=== PATIENT | male | born 1970 | race African-American/Black ===

== ENCOUNTER 2017-09-25 04:59 | Inpatient (IN) | payer OTHER ==
[~2017-09-25] VITALS: Ht 175.3 cm; Wt 84.1 kg
[2017-09-25 05:21] VITALS: BP 161/95; PULSE 60; RESP 18; TEMP 97.8; O2SAT 99
[2017-09-25] MEDS ORDERED: DILA100C PO (05:28)
--- NOTE | 2017-09-25 05:54 | PD ---
HPI Chief Complaint: Psychiatric Symptoms Time Seen by Provider: 05:24 Travel History International Travel<30 days: No Contact w/Intl Traveler<30days: No Traveled to known affect area: No History of Present Illness HPI 47-year-old black male presents emergency department as a transfer from [facility] emergency department for psychological evaluation under a [place] act. The patient had presented to the ER stating that he was feeling depressed regarding his homeless status and that this had been making him feel increasingly depressed. States he is hearing voices and he has a history of schizophrenia. Patient is homeless. Patient has a history of substance abuse. Patient denies any toxic ingestions. No plan on self-harm. PFSH Past Medical History Narrative Medical Schizophrenia, substance abuse, seizure disorder, epidural cervical hematoma, hypercholesterolemia Seizures: Yes Tetanus Vaccination: Unknown Past Surgical History Narrative Surgical Epidural cervical hematoma Social History Alcohol Use: Yes Tobacco Use: Yes Substance Use: Yes (sandro) Allergies-Medications (Allergen,Severity, Reaction): Coded Allergies: No Known Allergies (Unverified , 09/25/17) Reported Meds & Prescriptions Reported Meds & Active Scripts Active Reported Dilantin (Phenytoin Extended) 100 Mg Cap 100 Mg PO BID Review of Systems General / Constitutional: No: Fever Eyes: No: Visual changes HENT: No: Headaches Cardiovascular: No: Chest Pain or Discomfort Respiratory: No: Shortness of Breath Gastrointestinal: No: Abdominal Pain Genitourinary: No: Dysuria Musculoskeletal: No: Pain Skin: No Rash Neurologic: Positive: Seizures, No: Weakness Psychiatric: Positive: Depression, Suicidal Ideations, Disorder of Thought, Substance Abuse, No: Anxiety, Mood Disorder, Homicidal Ideation Endocrine: No: Polydipsia Hematologic/Lymphatic: No: Easy Bruising Physical Exam Narrative GENERAL: Well-nourished, well-developed patient. SKIN: Warm and dry. HEAD: Normocephalic and atraumatic. EYES: No scleral icterus. No injection or drainage. ENT: No nasal drainage noted. Mucous membranes pink. Airway patent. NECK: Supple, trachea midline. Moves head freely without obvious discomfort. CARDIOVASCULAR: Regular rate and rhythm without murmurs, gallops, or rubs. RESPIRATORY: Breath sounds equal bilaterally. No accessory muscle use. GASTROINTESTINAL: Abdomen soft, non-tender, nondistended. EXTREMITIES: No cyanosis or edema. BACK: Nontender without obvious deformity. No CVA tenderness. NEURO: Patient is alert and oriented. no sensorimotor deficits. Nonfocal. Normal speech. PSYCH: No delusions. No auditory or visual hallucinations. Data Data Last Documented VS Vital Signs Date Time Temp Pulse Resp B/P (MAP) Pulse Ox O2 Delivery O2 Flow Rate FiO2 09/25/17 05:21 97.8 60 18 161/95 (117) 99 MDM Medical Decision Making Medical Screen Exam Complete: Yes Emergency Medical Condition: Yes Medical Record Reviewed: Yes Differential Diagnosis MDM: High Differential diagnoses: Schizophrenia, schizoaffective disorder, bipolar, anxiety, depression, adjustment reaction, mood disorder NOS, ODD, depressive disorder NOS, dementia, dementia with agitation, psychosis NOS, substance induced mood disorder, DMDD, Asperger syndrome, infection,electrolyte abnormality, malingering. Narrative Course Mental health screening discussed with the patient. Psychiatric screen ordered. The patient has been medically cleared by [facility]. This is medical clearance for psychiatric admission, substance abuse, schizophrenia, homelessness Diagnosis Primary Impression: Medical clearance for psychiatric admission Additional Impressions: substance abuse Schizophrenia Homelessness Condition: Stable Roni Calderon Sep 25, 2017 05:54
[2017-09-25 08:56] VITALS: BP 137/84; PULSE 74; RESP 18; O2SAT 100
[2017-09-25] MEDS ORDERED: PHENYTOIN SODIUM 100 MG CAP PO ONE (10:30)
[2017-09-25] MEDS ORDERED: MAGNESIUM HYDROXIDE SUSP 30 ML CUP PO PRN (14:15)
[2017-09-25] MEDS ORDERED: FLUMAZENIL 0.5 MG/5 ML VIAL IV PUSH PRN (14:15)
[2017-09-25] MEDS ORDERED: LORazepam 2 MG TAB PO PRN (14:15)
[2017-09-25] MEDS ORDERED: LORazepam 1 MG TAB PO PRN ×2 (14:15)
[2017-09-25] MEDS ORDERED: LORazepam 2 MG/ML VIAL IV PUSH PRN ×4 (14:15)
[2017-09-25] MEDS ORDERED: LORazepam 2 MG/ML VIAL IM PRN ×2 (14:15)
[2017-09-25] MEDS ORDERED: ALUMINUM/MAGNESIUM/SIMETH 30 ML CUP PO PRN (14:15)
[2017-09-25] MEDS ORDERED: ACETAMINOPHEN 325 MG TAB PO PRN (14:15)
[2017-09-25] MEDS ORDERED: LORazepam 0.5 MG TAB PO PRN (14:15)
--- NOTE | 2017-09-25 14:22 | HHI.HP ---
Provisional Diagnosis Admission Date [place] I. Unspecified psychosis, self reported schizophrenia, cocaine, alcohol and cannabis use disorder [place] II. Deferred [place] III. Seizures Certification of Person's Competence To Provide Express and Informed Consent I have personally examined Trevor Gray , a person being served at [facility] on, Sep 25, 2017 14:11. Express and informed consent means consent voluntarily given in writing, by a competent person, after sufficient explanation and disclosure of the subject matter involved to enable the person to make a knowing and willful decision without any element of force, fraud, deceit, duress, or other form of constraint or coercion. This person is 18 years of age or older, is not now known to be incompetent to consent to treatment with a guardian advocate, and does not have a health care surrogate or proxy currently making medical treatment decisions. I have found this person to be one of the following: [x] Competent to provide express and informed consent, as defined above, for voluntary admission to this facility and is competent to provide express and informed consent for treatment. He/she has the consistent capacity to make well reasoned, willful, and knowing decisions concerning his or her medical or mental health treatment. The person fully and consistently understands the purpose of the admission for examination/placement and is fully capable of personally exercising all rights assured [place] Incompetent to provide express and informed consent to voluntary admission, and this is incompetent to provide express and informed consent to treatment. The person must be transferred to involuntary status and a petition for a guardian advocate filed with the Circuit Court. [] Refusing to provide express and informed consent to voluntary admission but is competent to provide express and informed consent for treatment. The person must be discharged or transferred to involuntary status. Form shall be completed within 24 hours of a person's arrival at the receiving facility and filed in the clinical record of each person: 1. Admitted on a voluntary basis 2. Permitted to provide express and informed consent to his/her own treatment 3. Allowed to transfer from involuntary to voluntary status 4. Prior to permitting a person to consent to his or her own treatment after having been previously found incompetent to consent to treatment. History of Present Illness Capacity: Has Capacity HPI The patient is a 47-year-old -[place]ov[place] man, homeless in the area of [facility], unemployed, in process of getting SSI, single, first time seem by the psychiatric department [place], with several reported psychiatric history of schizophrenia, 1 previous psychiatric hospitalization in to see me, he is not a medications, one previous suicidal attempt, alcohol, cocaine and cannabis use disorder, medical history of seizures, he is on Dilantin 100 mg, who presents emergency department as a transfer from [facility] emergency department for psychological evaluation under a [place] act. The patient had presented to the ER stating that he was feeling depressed regarding his homeless status and that this had been making him feel increasingly depressed. States he is hearing voices and he has a history of schizophrenia. Patient is homeless. Patient has a history of substance abuse. On psychiatric evaluation today patient is calm, cooperative, a little bit irritable. The patient states that for the last 2 weeks he has been feeling increasingly depressed, with increased sensation of hopelessness, helplessness, worthlessness, generalized pessimism, and increased thoughts of harming himself. He also reports that he has been hearing voices telling him to kill himself. Patient reports that he used cocaine, cannabis and alcohol occasionally, but he denies using this drugs in the last week. Patient reports that he was admitted in 2017 in a psychiatric hospital in [place] with similar presenting but after discharge he was not able to continue taking the medications due to lack of insurance and psychiatric connections. At this moment the patient does not present visible paranoia, delusions, tangentiality, ideas of reference, loosening of associations. The patient is fully oriented 3. No gross cognitive impairment present. The patient is able to verbalize that he is committed to be admitted and stabilized voluntarily. Review of Systems Constitutional: DENIES: Diaphoretic episodes, Fatigue, Fever, Weight gain, Weight loss, Chills, Dizziness, Change in appetite, Night Sweats Endocrine: DENIES: Heat/cold intolerance, Polydipsia, Polyuria, Polyphagia Eyes: DENIES: Blurred vision, Diplopia, Eye inflammation, Eye pain, Vision loss , Photosensitivity, Double Vision Ears, nose, mouth, throat: DENIES: Tinnitus, Hearing loss, Vertigo, Nasal discharge, Oral lesions, Throat pain, Hoarseness, Ear Pain, Running Nose, Epistaxis, Sinus Pain, Toothache, Odynophagia Respiratory: DENIES: Apneas, Cough, Snoring, Wheezing, Hemoptysis, Sputum production, Shortness of breath Cardiovascular: DENIES: Chest pain, Palpitations, Syncope, Dyspnea on Exertion , PND, Lower Extremity Edema, Orthopnea, Claudication Gastrointestinal: DENIES: Abdominal pain, Black stools, Bloody stools, Constipation, Diarrhea, Nausea, Vomiting, Difficulty Swallowing, Anorexia Genitourinary: DENIES: Sexual dysfunction, Urinary frequency, Urinary incontinence, Urgency, Hematuria, Dysuria, Nocturia, Penile Discharge, Testicular Pain, Testicular Swelling Musculoskeletal: DENIES: Joint pain, Muscle aches, Stiffness, Joint Swelling, Back pain, Neck pain Integumentary: DENIES: Abnormal pigmentation, Nail changes, Pruritus, Rash Hematologic/lymphatic: DENIES: Bruising, Lymphadenopathy Immunologic/allergic: DENIES: Eczema, Urticaria Neurologic: DENIES: Abnormal gait, Headache, Localized weakness, Paresthesias, Seizures, Speech Problems, Tremor, Poor Balance Psychiatric: COMPLAINS OF: Hallucinations, Suicidal Ideation, DENIES: Anxiety, Confusion, Mood changes, Depression, Agitation, Homicidal Ideation, Delusions Past Psych History Violence risk - self (6 mos) Increased Substance Abuse History Drugs/Alcohol past 12 months Cocaine, cannabis and alcohol occasionally Past Family Social History Coded Allergies: No Known Allergies (Unverified , 09/25/17) Reported Medications Phenytoin Extended (Dilantin) 100 Mg Cap, 100 MG PO BID for Control Seizures, # 90 CAP 0 Refills 09/25/17 Family Psych History No family psychiatric history Social History Patient was born and raised in [facility], he is homeless, unemployed, in process of [employer], his highest level of education is ninth grade Patient's Strengths (min. 2) Verbal communicate Physical Exam No tremors, no EPS, no psychomotor retardation, no gait disturbance Vital Signs Vital Signs Date Time Temp Pulse Resp B/P (MAP) Pulse Ox O2 Delivery O2 Flow Rate FiO2 09/25/17 08:56 74 18 137/84 (101) 100 Room Air 09/25/17 05:21 97.8 Mental Status Examination Appearance: Appropriate Consciousness: Alert Orientation: x4 Motor Activity: Normal gait Speech: Unremarkable Language: Adequate Fund of Knowledge: Adequate Attention and Concentration: Adequate Memory: Unremarkable Mood: Sad Affect: Irritable Thought Process & Associations: Intact Thought Content: Appropriate Hallucination Type: Auditory Delusion Type: None Suicidal Ideation: Yes Suicidal Plan: Yes Suicidal Intention: No Homicidal Ideation: No Homicidal Plan: No Homicidal Intention: No Insight: Poor Judgment: Poor Assessment & Plan Problem List: (1) Unspecified psychosis ICD Codes: F29 - Unspecified psychosis not due to a substance or known physiological condition Assessment & Plan: On psychiatric evaluation today the patient presents with symptomatology of acute depression, sleep consisting anhedonia, hopelessness, helplessness, worthlessness, suicidal ideation without specific plan, the patient also reports commanding type auditory hallucinations of voices telling him to kill himself. The patient reports psychiatric history of schizophrenia, previous psychiatric hospitalizations, he also reports occasional use of marijuana, cocaine and alcohol, even though this time his toxicology is negative. Patient is not known by the psychiatric department. Patient has high risk of danger to himself. He is willing to accept a voluntary admission. He will be admitted in 0. I will start Seroquel 25 mg twice daily. Monitor closely behavior, thought process, potential drug-seeking behavior. Even though a primary psychotic disorder decompensation is likely, drug-induced psychosis and conscious stimulation with secondary gain of use in the hospital as a long-term is also possible. Brief supportive psychotherapy, psychoeducation and motivation provided. lay out worker intervention for psychosocial assessment , collateral information, to coordinate safe discharge planning. Assessment & Plan Estimated LOS: Meir Cedillo MD Sep 25, 2017 14:22
[2017-09-25] MEDS: NICOTINE 21 MG/24 HR PATCH T-DERMAL SCH (14:25)
[2017-09-25] MEDS: QUEtiapine FUMARATE 25 MG TAB PO SCH (14:26)
[2017-09-25 16:40] VITALS: BP 173/82; PULSE 56; RESP 20; TEMP 96.8; O2SAT 98
[2017-09-25] MEDS: PHENYTOIN SODIUM 100 MG CAP PO SCH (20:46)
[2017-09-26 06:07] VITALS: BP 122/62; PULSE 65; RESP 18; TEMP 99; O2SAT 96
[2017-09-26] MEDS: NICOTINE 21 MG/24 HR PATCH T-DERMAL SCH (09:00)
[2017-09-26] MEDS: PHENYTOIN SODIUM 100 MG CAP PO SCH ×2 (09:00→20:42)
[2017-09-26] MEDS ORDERED: diphenhydrAMINE HCL 50 MG CAP PO PRN (15:45)
[2017-09-26] MEDS ORDERED: hydrOXYzine HCL 50 MG TAB PO PRN (15:45)
--- NOTE | 2017-09-26 15:51 | HHI.PYPN ---
Subjective Remarks Patient seen in [facility] with nurse Malathi, chart review, patient compliant medications, patient discussed with nurse. Patient initially admitted by Dr. Ruiz, his H&P reviewed and agreed with. I have finished the admission psychotic template orders. And review the medication reconciliation. Patient seen by me with nurse Malathi. Is alert irritable somewhat demanding and manipulative Afro[place] Islander male. When attempting to elicit history of his mental health issues and is soft abuse issues became somewhat angry and more irritable. I explained to him our need to start discussing discharge plans with them that with his history of multiple drug abuse, and is having no funding of any type related might benefit from exploring are sober living facilities here in town such as [facility] [email or web address]. patient stating he can't work-because of his epilepsy and is trying to get disability. I suggested that employment may be possible even with his epilepsy if it is treated in under control. He was l not agreeable with that answer. Main event at this time we' ll continue to monitor him we'll check a Dilantin level over in the morning. And further discuss discharge plans Review of Systems Except as stated in HPI: all other systems reviewed are Neg Mental Status Examination Appearance: Appropriate Consciousness: Alert Orientation: x4 Motor Activity: Normal gait Speech: Unremarkable Language: Adequate Fund of Knowledge: Adequate Attention and Concentration: Adequate Memory: Unremarkable Mood: Sad Affect: Irritable Thought Process & Associations: Intact Thought Content: Appropriate Hallucination Type: Auditory Delusion Type: None Suicidal Ideation: Yes Suicidal Plan: Yes Suicidal Intention: No Homicidal Ideation: No Homicidal Plan: No Homicidal Intention: No Insight: Poor Judgment: Poor Results Vitals/IOs Vital Signs Date Time Temp Pulse Resp B/P (MAP) Pulse Ox O2 Delivery O2 Flow Rate FiO2 09/26/17 06:07 99.0 65 18 122/62 (82) 96 09/25/17 08:56 Room Air Assessment & Plan Problem List: (1) Psychotic episode ICD Codes: F23 - Brief psychotic disorder Assessment & Plan Estimated LOS: days patient remains depressed he is endorsing invoicing auditory hallucinations of a female. This been going on for a few months. He does state various depths of various family and extended family members. Though there appears to be some degree of manipulation related to this also. At this time patient has ability to sign voluntary lift [place] act allow patient to sign voluntary Justification for Cont. Inpt. If this time patient decompensated placed in a lower level of care Discharge Planning To be determined Request HC Surrog/Guard Advoc?: No Kristian Frederick MD Sep 26, 2017 15:51
[2017-09-26 16:55] VITALS: BP 134/72; PULSE 87; RESP 18; TEMP 97.9; O2SAT 98
[2017-09-26] MEDS: QUEtiapine FUMARATE 25 MG TAB PO SCH (21:00)
[2017-09-27 05:55] VITALS: BP 122/64; PULSE 60; RESP 18; TEMP 98.1; O2SAT 97
[2017-09-27] MEDS: PHENYTOIN SODIUM 100 MG CAP PO SCH ×3 (07:46→20:12)
[2017-09-27] MEDS: NICOTINE 21 MG/24 HR PATCH T-DERMAL SCH (09:00)
--- NOTE | 2017-09-27 11:01 | HHI.PYPN ---
Subjective Remarks Reviewed electronic medical record and discussed case with staff. Follow-up was performed in day room. Patient awake, alert, and oriented 4. His mood is irritable as is his affect. He was observed by staff having verbal altercations with other residents on the unit. His speech is slightly rapid however, at the time he did not appear internally stimulated. Patient refusing to sign consents for medication, states "I do not want any". He reported that he like to be discharged and advised that he lived with his aunt. He gave this provider her name and number, Rekha Davis [phone], to call to corroborate information however, after he left the unit he advised the nurse that he does not live with the and is in fact homeless. Spoke with the aunt she does corroborate homeless story. Additionally she says that the patient has told his uncle that he "wanted to kill other people he was living with". Patient reports hearing the voice of his mother and grandmother. He has made statements to multiple people that he would "like to be with them". This has been interpreted as suicidal ideation by these individuals. Aunt states patient has multiple visits to [facility] but, he remains noncompliant with his medications. She states she has been attempting to get him Social Security disability and Medicaid however, he fails to follow through and return calls to them. Additionally she advises that he is unable to stay at the homeless halfway due to his seizure disorder. She advises that Mr. Gray has stated with multiple family members in the recent past but after a couple of days they end up inviting him to leave. Consulted with Dr. Frederick and due to this new information, this patient meets the criteria for Hogue act. Dr. Frederick will be placing Mr. Gray under a [place] act. Mental Status Examination Appearance: Appropriate Consciousness: Alert Orientation: x4 Motor Activity: Normal gait Speech: Unremarkable Language: Adequate Fund of Knowledge: Adequate Attention and Concentration: Adequate Memory: Unremarkable Mood: Angry, Irritable Affect: Irritable, Blunt Thought Process & Associations: Goal directed (Towards discharge) Thought Content: Hallucinations (Reports hearing his mother and grandmother speak to him) Hallucination Type: Auditory Delusion Type: None Suicidal Ideation: Yes (Has stated to multiple people that he would like to be with his mother and grandmother) Suicidal Plan: Yes Suicidal Intention: No Homicidal Ideation: Yes (Per family patient has made this statement that "he wants to kill everyone he is living with". There are however uncertain who these people are.) Homicidal Plan: No Homicidal Intention: No Insight: Poor Judgment: Poor Results Vitals/IOs Vital Signs Date Time Temp Pulse Resp B/P (MAP) Pulse Ox O2 Delivery O2 Flow Rate FiO2 09/27/17 05:55 98.1 60 18 122/64 (83) 97 09/25/17 08:56 Room Air Assessment & Plan Problem List: (1) Psychotic episode ICD Codes: F23 - Brief psychotic disorder Assessment & Plan Estimated LOS: Patient is to be placed under a [place] act. Is refusing to take medications at this time. We will continue to work on psychiatrically stabilizing this patient. Justification for Cont. Inpt. Moving this patient to a lower level of care would result and decompensation. Request HC Surrog/Guard Advoc?: No Claudia Robles Sep 27, 2017 11:01
[2017-09-27] MEDS: QUEtiapine FUMARATE 25 MG TAB PO SCH ×2 (12:31→20:13)
[2017-09-27 17:00] VITALS: BP 149/76; PULSE 58; RESP 18; TEMP 96.9; O2SAT 99
[2017-09-27] MEDS ORDERED: PHENYTOIN SODIUM 100 MG CAP PO SCH (21:00)
[2017-09-28 05:52] VITALS: BP 123/74; PULSE 75; RESP 16; TEMP 98.2; O2SAT 100
[2017-09-28] MEDS: NICOTINE 21 MG/24 HR PATCH T-DERMAL SCH (09:00)
[2017-09-28] MEDS: QUEtiapine FUMARATE 25 MG TAB PO SCH (09:08)
[2017-09-28] MEDS: PHENYTOIN SODIUM 100 MG CAP PO SCH (09:09)
--- NOTE | 2017-09-28 12:32 | HHI.DS ---
Psychiatry Discharge Summary Inpatient Psychiatric care?: Yes Advance Directive: No Reason Not Provided: DOES NOT HAVE Mental Health AdvanceDirective: No Health Care Proxy: No Admission Admission Date Sep 25, 2017 at 14:10 Admission Diagnosis: (1) Psychotic episode ICD Code: F23 - Brief psychotic disorder Brief History The patient is a 47-year-old -Irish man, homeless in the area of [facility], unemployed, in process of getting SSI, single, first time seem by the psychiatric department [place], with several reported psychiatric history of schizophrenia, 1 previous psychiatric hospitalization in to see me, he is not a medications, one previous suicidal attempt, alcohol, cocaine and cannabis use disorder, medical history of seizures, he is on Dilantin 100 mg, who presents emergency department as a transfer from [facility] emergency department for psychological evaluation under a [place] act. The patient had presented to the ER stating that he was feeling depressed regarding his homeless status and that this had been making him feel increasingly depressed. States he is hearing voices and he has a history of schizophrenia. Patient is homeless. Patient has a history of substance abuse. On psychiatric evaluation today patient is calm, cooperative, a little bit irritable. The patient states that for the last 2 weeks he has been feeling increasingly depressed, with increased sensation of hopelessness, helplessness, worthlessness, generalized pessimism, and increased thoughts of harming himself. He also reports that he has been hearing voices telling him to kill himself. Patient reports that he used cocaine, cannabis and alcohol occasionally, but he denies using this drugs in the last week. Patient reports that he was admitted in 2017 in a psychiatric hospital in [place] with similar presenting but after discharge he was not able to continue taking the medications due to lack of insurance and psychiatric connections. At this moment the patient does not present visible paranoia, delusions, tangentiality, ideas of reference, loosening of associations. The patient is fully oriented 3. No gross cognitive impairment present. The patient is able to verbalize that he is committed to be admitted and stabilized voluntarily. Tobacco Use In Past 30 Days: No Tobacco Past 30 Days Alcohol Use: Never Hospital Course Patient was admitted to a locked psychiatric inpatient unit. All available safety precautions were maintained throughout the visit. Patient was seen daily by a psychiatric provider as well as followed by counselor. Patient has shown improvement over his stay. This morning when I spoke with patient he was calm with a good mood and euthymic affect. His speech is clear, logical, and organized. He does not appear internally stimulated was appropriate throughout the interview. He denies any suicidal ideation, homicidal ideation, visual or auditory hallucinations. I can elicit no delusional material at this time. Patient follows up in [place] and has stated his desire to return to that area. Collateral information was obtained by patient's counselor Jeffrey, the patient' s girlfriend is willing for him to come back to her house and stay with her. Patient appears to be psychiatrically stabilized and has reached maximum therapeutic benefit from this admission. He no longer meets inpatient criteria. He will be discharged with transportation to his girlfriend's house and prescriptions. Patient was advised to follow-up at [facility] for continued outpatient treatment. He was advised that he could return should his condition worsen. Results Blood Pressure 123 / 74 Vital Signs Date Time Temp Pulse Resp B/P (MAP) Pulse Ox O2 Delivery O2 Flow Rate FiO2 09/28/17 05:52 98.2 75 16 123/74 (90) 100 09/25/17 08:56 Room Air Laboratory Tests Test 09/28/17 11:14 Phenytoin (Dilantin) Level 3.4 MCG/ML (10.0-20.0) Summary of Procedures None Pending results at discharge: No Medications # of Antipsychotic meds at D/C: 1 Approp Antipsych med options 1 - Minimum of three failed multiple trials of monotherapy. 2 - Documented plan to taper to monotherapy due to previous use of multiple meds OR cross-taper in progress at D/C. 3 - Documentation of augmentation of Clozapine. 4 - Justification other than those listed in allowable values 1-3, document here : Discharge Discharge Date: Sep 28, 2017 Discharge Diagnosis: (1) Psychotic episode Diagnosis: Principal ICD Code: F23 - Brief psychotic disorder Pt Condition on Discharge: Stable Discharge Disposition: Discharge Home Discharge Instructions Diet Instructions: As Tolerated, No Restrictions Activities you can perform: Regular-No Restrictions Discharge Time > 30 minutes Mental Status Examination Appearance: Appropriate Consciousness: Alert Orientation: x4 Motor Activity: Normal gait Speech: Unremarkable Language: Adequate Fund of Knowledge: Adequate Attention and Concentration: Adequate Memory: Unremarkable Mood: Angry, Irritable Affect: Irritable, Blunt Thought Process & Associations: Goal directed (Towards discharge) Thought Content: Hallucinations (Reports hearing his mother and grandmother speak to him) Hallucination Type: Auditory Delusion Type: None Suicidal Ideation: Yes (Has stated to multiple people that he would like to be with his mother and grandmother) Suicidal Plan: Yes Suicidal Intention: No Homicidal Ideation: Yes (Per family patient has made this statement that "he wants to kill everyone he is living with". There are however uncertain who these people are.) Homicidal Plan: No Homicidal Intention: No Insight: Poor Judgment: Poor Discharge/Advance Care Plan Health Problems: (1) Psychotic episode Goals to promote your health * To prevent worsening of your condition and complications * To maintain your health at the optimal level Directions to meet your goals Take your medications as prescribed Follow your dietary instruction Follow activity as directed Keep your appointments as scheduled Take your immunizations and boosters as scheduled If your symptoms worsen call your PCP, if no PCP go to Urgent Care Center or Emergency Room For 22/01 questions related to your inpatient stay or results of tests pending at discharge, please contact Dr. Claudia Robles at Smoking is Dangerous to Your Health. Avoid second hand smoking Claudia Robles Sep 28, 2017 12:32
[2017-09-28] MEDS ORDERED: SERO25TA PO (12:35)
[2017-09-28] MEDS ORDERED: DILA100C PO (12:35)
== END 2017-09-28 15:05 | disposition home or self-care (01) | DRG 885 ==
LOC: NEPD 04:59 → NEDA 14:10 → H270 16:30
PROVIDERS: ADMIT Psychiatry & Neurology Psychiatry; ATTEND Psychiatry & Neurology Psychiatry
DX: F23 Brief psychotic disorder (principal); G40.909 Epilepsy, unspecified, not intractable, without status epilepticus; Z91.14 Patient's other noncompliance with medication regimen; Z59.0 Homelessness
CPT/HCPCS: 80185; 99285

== ENCOUNTER 2017-11-20 12:35 | Emergency (ER) | payer SELFPAY ==
[~2017-11-20] VITALS: Ht 175.3 cm; Wt 84.1 kg
[~2017-11-20 12:35] MED LIST: DILA100C PO; SERO25TA PO
[2017-11-20 13:07] VITALS: BP 128/65; PULSE 88; RESP 16; TEMP 98.5; O2SAT 99
[2017-11-20] MEDS ORDERED: DEPA500T3 PO (13:52)
--- NOTE | 2017-11-20 13:54 | PD ---
Physical Exam Date Seen by Provider: November 20, 2017 Time Seen by Provider: 13:53 Narrative 39-year-old male previously medically cleared at [facility], was transferred here for psychiatric evaluation under the [employer] act for psychiatric symptoms including auditory hallucinations and voices telling him to kill himself. Patient has history of schizophrenia and bipolar disorder. He has no medical complaints. Labs and previous medical record was reviewed prior to transfer. Patient remains medically stable for psychiatric evaluation. Data Data Last Documented VS Vital Signs Date Time Temp Pulse Resp B/P (MAP) Pulse Ox O2 Delivery O2 Flow Rate FiO2 11/20/17 13:07 98.5 88 16 128/65 (86) 99 Orders Orders Psych Screen (11/20/17 13:25) MDM Medical Record Reviewed: Yes Supervised Visit with GINGER: Yes Narrative Course 39-year-old male previously medically cleared at [facility], was transferred here for psychiatric evaluation under the [employer] act for psychiatric symptoms including auditory hallucinations and voices telling him to kill himself. Patient has history of schizophrenia and bipolar disorder. He has no medical complaints. Labs and previous medical record was reviewed prior to transfer. Patient remains medically stable for psychiatric evaluation. Diagnosis Primary Impression: Medical clearance for psychiatric admission Condition: Stable Jeremy Doshi November 20, 2017 13:54
[2017-11-20] MEDS ORDERED: PHENYTOIN SODIUM 100 MG CAP PO SCH (21:00)
[2017-11-20] MEDS ORDERED: QUEtiapine FUMARATE 25 MG TAB PO SCH (21:00)
[2017-11-20] MEDS ORDERED: DIVALPROEX SODIUM E.R. 500 MG TAB PO SCH (21:00)
[2017-11-21 05:28] VITALS: BP 118/64; O2SAT 99
--- NOTE | 2017-11-21 08:56 | PD ---
Physical Exam Date Seen by Provider: November 21, 2017 Time Seen by Provider: 08:55 Narrative 47-year-old male previously [place] acted and medically cleared by [facility], has been seen by psychiatric staff and deemed to be psychiatrically stable for discharge at this time. Follow-up will be based on psychiatric note. Patient remains medically stable for discharge at this time Data Data Last Documented VS Vital Signs Date Time Temp Pulse Resp B/P (MAP) Pulse Ox O2 Delivery O2 Flow Rate FiO2 11/21/17 05:28 96 16 118/64 (82) 99 Room Air 11/20/17 13:07 98.5 Orders Orders Psych Screen (11/20/17 13:25) Diet Regular Basic (11/20/17 Dinner) Divalproex Er (Depakote Er) (11/20/17 21:00) Phenytoin (Dilantin) (11/20/17 21:00) Quetiapine (Seroquel) (11/20/17 21:00) Diet Regular Basic (11/21/17 Breakfast) MDM Medical Record Reviewed: Yes Supervised Visit with GINGER: Yes Narrative Course 47-year-old male previously [place] and medically cleared by [facility], has been seen by psychiatric staff and deemed to be psychiatrically stable for discharge at this time. Follow-up will be based on psychiatric note. Patient remains medically stable for discharge at this time Diagnosis Primary Impression: Medical clearance for psychiatric admission Additional Impression: Malingering Patient Instructions: General Instructions Departure Forms: Tests/Procedures Disposition: 01 DISCHARGE HOME Condition: Stable Jeremy Doshi November 21, 2017 08:56
--- NOTE | 2017-11-21 14:50 | PD.PSY.CON ---
Provisional Diagnosis Admission Date [place] I. Cannabis use disorder, self-reported schizophrenia, rule out malingering [place] II. Antisocial personality disorder [place] III. Seizures, History of Present Illness Service Psychiatry Consult Requested By ER Reason for Consult Auditory hallucination Primary Care Physician No Primary Care Physician HPI Patient is 47-year-old -[place] man, homeless in the [place] area, single, employed, with self-reported psychiatric history of schizophrenia, cannabis use disorder, multiple psychiatric hospitalizations, patient was just released from a hospitalization in [place] 2 days ago, he was discharged in S[place] 200 mg at bedtime, once he was discharged, he walking to 1 of the [facility] was in [place] complaining of auditory hallucinations, he has medical history of seizures, previously medically cleared at [facility], was transferred here for psychiatric evaluation under the [place] act for psychiatric symptoms including auditory hallucinations and voices telling him to kill himself. Patient has history of schizophrenia and bipolar disorder. He has no medical complaints. Labs and previous medical record was reviewed prior to transfer. Patient remains medically stable for psychiatric evaluation. On psychiatric evaluation the patient reports that he continues to hear the voices of his mother "telling me to do the right thing". Patient reports that the right thing for him is to be admitted. He reports that he is tired to be homeless, he does not have energy to walk in the street today. He says that he was discharged 2 days ago for a psychiatric hospital in [place], "but I did not follow the recommendation, I did not by the medical, I walked to another hospital". At this moment the patient denies suicidal enemas ideation, he denies peaceful and auditory hallucinations right now. He reports occasional use of marijuana, denies the use of other illegal drugs alcohol. Review of Systems Constitutional: DENIES: Diaphoretic episodes, Fatigue, Fever, Weight gain, Weight loss, Chills, Dizziness, Change in appetite, Night Sweats Endocrine: DENIES: Heat/cold intolerance, Polydipsia, Polyuria, Polyphagia Eyes: DENIES: Blurred vision, Diplopia, Eye inflammation, Eye pain, Vision loss , Photosensitivity, Double Vision Ears, nose, mouth, throat: DENIES: Tinnitus, Hearing loss, Vertigo, Nasal discharge, Oral lesions, Throat pain, Hoarseness, Ear Pain, Running Nose, Epistaxis, Sinus Pain, Toothache, Odynophagia Respiratory: DENIES: Apneas, Cough, Snoring, Wheezing, Hemoptysis, Sputum production, Shortness of breath Cardiovascular: DENIES: Chest pain, Palpitations, Syncope, Dyspnea on Exertion , PND, Lower Extremity Edema, Orthopnea, Claudication Gastrointestinal: DENIES: Abdominal pain, Black stools, Bloody stools, Constipation, Diarrhea, Nausea, Vomiting, Difficulty Swallowing, Anorexia Genitourinary: DENIES: Sexual dysfunction, Urinary frequency, Urinary incontinence, Urgency, Hematuria, Dysuria, Nocturia, Penile Discharge, Testicular Pain, Testicular Swelling Musculoskeletal: DENIES: Joint pain, Muscle aches, Stiffness, Joint Swelling, Back pain, Neck pain Integumentary: DENIES: Abnormal pigmentation, Nail changes, Pruritus, Rash Hematologic/lymphatic: DENIES: Bruising, Lymphadenopathy Neurologic: DENIES: Abnormal gait, Headache, Localized weakness, Paresthesias, Seizures, Speech Problems, Tremor, Poor Balance Psychiatric: DENIES: Anxiety, Confusion, Mood changes, Depression, Hallucinations, Agitation, Suicidal Ideation, Homicidal Ideation, Delusions Past Family Social History Coded Allergies: No Known Allergies (Unverified , 09/25/17) Active Scripts Quetiapine (Seroquel) 25 Mg Tab, 25 MG PO BID for health for 30 Days, #60 TAB Prov:Claudia Robles 09/28/17 Phenytoin Extended (Dilantin) 100 Mg Cap, 200 MG PO BID for se for 30 Days, #60 CAP Prov:Claudia Robles 09/28/17 Reported Medications Divalproex ER (Depakote ER) 500 Mg Juan, 500 MG PO BID for Control Seizures, # 30 TAB 0 Refills 11/20/17 Family Psych History No family psychiatric history Social History Patient was born and raised exam for, he is homeless exam for area, single, unemployed, his highest level of education is 10th grade, he is on SSI process Patient's Strengths (min. 2) Verbal communication Physical Exam Vital Signs Vital Signs Date Time Temp Pulse Resp B/P (MAP) Pulse Ox O2 Delivery O2 Flow Rate FiO2 11/21/17 11:16 11/21/17 05:28 96 16 99 Room Air 11/20/17 13:07 98.5 Mental Status Examination Appearance: Appropriate Consciousness: Alert Orientation: x4 Motor Activity: Normal gait Speech: Unremarkable Language: Adequate Fund of Knowledge: Adequate Attention and Concentration: Adequate Memory: Unremarkable Mood: Appropriate Affect: Appropriate Thought Process & Associations: Intact Thought Content: Appropriate Hallucination Type: None Delusion Type: None Suicidal Ideation: No Suicidal Plan: No Suicidal Intention: No Homicidal Ideation: No Homicidal Plan: No Homicidal Intention: No Insight: Adequate Judgment: Adequate Assessment & Plan Problem List: (1) Antisocial personality disorder ICD Codes: F60.2 - Antisocial personality disorder Assessment & Plan Estimated LOS: Meir Mcginnis MD November 21, 2017 14:50
== END 2017-11-21 11:18 | disposition home or self-care (01) ==
LOC: NEPJ 12:35
DX: F60.2 Antisocial personality disorder (principal); F12.90 Cannabis use, unspecified, uncomplicated; F31.9 Bipolar disorder, unspecified; F20.9 Schizophrenia, unspecified
CPT/HCPCS: 99284

== ENCOUNTER 2018-02-06 07:16 | Inpatient (IN) ==
[2018-02-06] MEDS ORDERED: Aluminum/Magnesium/Simethacone Susp 30 ML UDC PO PRN (11:53)
[2018-02-06] MEDS: Phenytoin Sodium 100 MG Capsule PO SCH (20:32)
[2018-02-06] MEDS: Divalproex 250 MG DR Tablet PO SCH (20:32)
[2018-02-07] MEDS: Divalproex 250 MG DR Tablet PO SCH ×2 (08:05→21:21)
[2018-02-07] MEDS: Phenytoin Sodium 100 MG Capsule PO SCH ×3 (08:06→21:21)
--- NOTE | 2018-02-07 11:00 | P.HPPSY ---
Provisional Diagnosis Admission Date: February 06, 2018 10:51 [place] I.: 1. Adjustment disorder with depressed mood Rule-out malingering 2. Cannabis use, rule-out use disorder [place] II.: Deferred Competence Certification of Person's Competence To Provide Express and Informed Consent I have personally examined Trevor Gray, a person being served at [facility] on, February 07, 2018 1100. Express and informed consent means consent voluntarily given in writing, by a competent person, after sufficient explanation and disclosure of the subject matter involved to enable the person to make a knowing and willful decision without any element of force, fraud, deceit, duress, or other form of constraint or coercion. This person is 18 years of age or older, is not now known to be incompetent to consent to treatment with a guardian advocate, and does not have a health care surrogate or proxy currently making medical treatment decisions. I have found this person to be one of the following: [X] Competent to provide express and informed consent, as defined above, for voluntary admission to this facility and is competent to provide express and informed consent for treatment. He/she has the consistent capacity to make well reasoned, willful, and knowing decisions concerning his or her medical or mental health treatment. The person fully and consistently understands the purpose of the admission for examination/placement and is fully capable of personally exercising all rights assured [place] [] Incompetent to provide express and informed consent to voluntary admission, and this is incompetent to provide express and informed consent to treatment. The person must be transferred to involuntary status and a petition for a guardian advocate filed with the Circuit Court. [] Refusing to provide express and informed consent to voluntary admission but is competent to provide express and informed consent for treatment. The person must be discharged or transferred to involuntary status. Form shall be completed within 24 hours of a person's arrival at the receiving facility and filed in the clinical record of each person: 1. Admitted on a voluntary basis 2. Permitted to provide express and informed consent to his/her own treatment 3. Allowed to transfer from involuntary to voluntary status 4. Prior to permitting a person to consent to his or her own treatment after having been previously found incompetent to consent to treatment. History of Present Illness Capacity: Has capacity Chief Complaint: Depression History of Present Illness: Mr. Gray is a 48-year-old male with a chart history of brief psychotic disorder, cannabis use disorder and antisocial personality disorder who presents in transfer from [facility] under a [place] act. Documentation from outside hospital reviewed. Patient apparently presented to the ER earlier in the day for "different complaints" but re-presented in the evening saying that he was hearing voices telling to kill himself and others. Patient's urine toxicology was positive for cannabinoids. Reviewing our electronic medical record, I note the patient was seen in October of this year in consultation by Dr. Mcginnis and was also briefly admitted in August of this year to the inpatient unit. Patient seen and examined with nurse. Chart reviewed. Case discussed with nursing staff. On my examination today, the patient denies any suicidal or homicidal ideation. He tells me "I talk like that, but I ain't fixin' to hurt myself." Instead, he says that he has been feeling down because of family conflict that began after his father 4 years ago. He complains of ongoing low mood now, and he does appear a little dysphoric. He reports his sleep and appetite are fair. I can elicit no severe depressive or hypomanic/ manic symptoms. I can elicit no ideas of reference, thought manipulation or other delusional material. He claims to hear his mother, who is , talking to him saying "everything is going to be all right." He does not appear internally stimulated, and this symptom does not seem to represent rajinder nicolas psychosis. Remainder of the psychiatric ROS is negative. No acute physical complaints. Past psychiatric history: Patient has previous diagnoses as noted above. He [facility] for [facility] health services. He reports that he was hospitalized 2 weeks ago at a hospital in [place]. He maintains that he is adherent with his psychotropic medications, namely Risperdal and Remeron. He denies any history of suicide attempts. Denies any history of violent behavior. Family history: The patient denies any family history of mental illness or suicide. Chemical dependency history: The patient reports that he smokes cannabis but insists that this is medicinal. He denies any other substance use. Social history: The patient stays with his aunt. He is . He has 2 children a son and a daughter with whom he has a good relationship. He has a grade 10 education. He is trying to get disability benefits but says that he is getting the run around. He has food stamps but says that this is insufficient. He denies any or legal history. He denies any access to guns or firearms. He is a Zoroastrianism. He denies any history of abuse. Past medical history: The patient reports a history of meningitis as a young child and says that he has a seizure disorder as a result. His last seizure was 2 weeks ago. - Inpatient Certification I certify that the inpatient services were ordered in accordance with Medicare regulations governing the order. This includes certification that hospital inpatient services are reasonable and necessary and in the case of services not specified as inpatient-only under 42 CFR 419.22(n), that they are appropriately provided as inpatient services in accordance to with the 2-midnight benchmark under 43 CFR 412.3(e) I certify that inpatient psychiatric hospital services are medically necessary. Evaluation and treatment and/or diagnostic testing are expected to improve the patient's condition. The patient needs on a daily basis, active treatment furnished directly by or requiring the supervision of inpatient psychiatric facility personnel. Estimated Total Length of Stay (Days): 3 (2-3) Plans for Post Hospital Care: Not yet determined Review of Systems All other systems reviewed negative except as stated in HPI [facility] - Medical History Medical History: Medical History (Last Updated 01/26/18 @ 05:37 by Nata Burrows) Seizure - Surgical History Surgical History: Surgical History (Last Updated 01/26/18 @ 05:53 by Nata Burrows) History of spinal surgery - Substance Use Type Marijuana Frequency: couple of times a week Last Used: last week Comment: PT reports use of marijuana to manage seizures, reports he is not able to afford medications Quality Measures - Patient Strengths Patient's strengths (minimum of 2): Attending to basic needs. Verbally fluent. Medications and Allergies Active Medications: Active Medications Al Hydrox/Mg Hydrox/Simethicone (Mag-Al Plus Susp Liq) 30 ml PO Q6H PRN PRN Reason: DYSPEPSIA Al Hydroxide/Mg Hydroxide (Milk Of Magnesia Liq) 30 ml PO Q12H PRN PRN Reason: Mild Constipation Atorvastatin Calcium (Lipitor) 40 mg PO HS REPLACED BY [facility] Last Admin: 02/06/18 20:32 Dose: 40 mg Divalproex Sodium (Depakote Dr) 250 mg PO BID REPLACED BY [facility] Last Admin: 02/07/18 08:05 Dose: 250 mg Phenytoin Sodium (Dilantin) 200 mg PO BID REPLACED BY [facility] Last Admin: 02/07/18 09:00 Dose: 200 mg Allergies Allergy/AdvReac Type Severity Reaction Status Date / Time No Known Allergies Allergy Verified 01/26/18 05:39 Home Medications Medication Instructions Recorded Confirmed Type atorvastatin 40 mg PO HS 01/26/18 02/06/18 History divalproex [Depakote] 250 mg PO BID 01/26/18 02/06/18 History mirtazapine 30 mg PO HS 01/26/18 02/06/18 History phenytoin sodium extended 200 mg PO BID 01/26/18 02/06/18 History risperidone [Risperdal] 2 mg PO BID 01/26/18 02/06/18 History Results - Labs Labs: Laboratories from outside hospital reviewed: I see no blood or serum laboratories. Urine toxicology was positive for cannabinoids. Urinalysis was bland. Patient reportedly refused laboratories this morning per the nurse saying that he does not like needles. Exam Vital signs: Vital Signs 02/06/18 11:51 02/07/18 06:18 Temperature 97.6 F 97.3 F L Pulse Rate 70 74 Respiratory Rate 18 18 Blood Pressure 141/73 H 139/71 Pulse Oximetry 98 100 Intake & Output 02/06/18 02/07/18 02/07/18 18:59 06:59 18:59 Weight 88.3 kg Other: Weight On Admission 88.3 kg Narrative: Physical examination was completed by the ED provider at outside hospital. On my examination today, the patient appears to be in no acute physical distress. No motor abnormalities noted. No ictal activity noted. Laboratories and vital signs reviewed: Mental Status Examination Appearance: Appropriate Consciousness: Alert Orientation: x4 Motor Activity: Other (No motor abnormalities noted) Speech: Slow Language: Adequate Fund of Knowledge: Adequate Attention and Concentration: Adequate Memory: Unremarkable (Grossly intact on clinical exam) Mood: Other (Dysphoric) Affect: Other (Somewhat downcast) Thought Process & Associations: Intact, Logical, Linear Thought Content: Appropriate Hallucination Type: Auditory (Claims to hear mother's voice. He does not appear internally stimulated. Suspect this is not genuinely psychotic.) Delusion Type: None Suicidal Ideation: No Suicidal Plan: No Suicidal Intention: No Homicidal Ideation: No Homicidal Plan: No Homicidal Intention: No Mental Status Exam Remarks: Insight and judgment are fair. Assessment and Plan - Assessment (1) Adjustment disorder with depressed mood Code(s): F43.21 - Adjustment disorder with depressed mood Status: Acute (2) Cannabis abuse, continuous use Code(s): F12.10 - Cannabis abuse, uncomplicated Status: Acute - Plan Plan: 48-year-old male with psychiatric history as detailed above who presents in transfer from outside hospital under a [place] act. On my examination today, the patient presents as a little dysphoric and cites family stressors as his main problem. I do not suspect a severely decompensated mood episode, nor do I suspect a decompensated psychotic episode in this patient. Adjustment reaction seems likely, but it is also possible that he is exaggerating or malingering symptoms, perhaps to bolster his efforts to obtain disability. I will plan to admit the patient briefly to the inpatient psychiatric unit for observation and for a medication adjustment. Admit inpatient. Voluntary status. Titrate Remeron to 45 mg at bedtime to target dysphoria. Continue Risperdal as ordered. Continue Depakote and phenytoin for seizure. Seizure precautions. I would like to obtain basic laboratories if patient is willing as these were not obtained at outside hospital so far as I can see from the transfer paperwork. Check CBC and CMP. Vitals every shift. Counselor to see. Disposition planning. Estimated length of stay: 2-3 days. Justification for Continued Inpatient Stay: See above Discharge Planning: Pending outcome of observation Request Healthcare Surrogate/Guardian Advocate?: No
[2018-02-07] MEDS ORDERED: Mirtazapine 15 MG Tablet PO SCH (21:00)
[2018-02-08] MEDS: Divalproex 250 MG DR Tablet PO SCH (08:24)
[2018-02-08] MEDS: Phenytoin Sodium 100 MG Capsule PO SCH (08:25)
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
== END 2018-02-08 16:20 ==
LOC: H270 10:51
PROVIDERS: ADMIT Psychiatry & Neurology Psychiatry; ATTEND Psychiatry & Neurology Psychiatry